=== PATIENT | female | born 1940 | race Two or more races ===

== ENCOUNTER 2022-01-22 19:23 | Emergency (ER) | payer OTHER ==
[~2022-01-22] VITALS: Ht 147.3 cm; Wt 63.5 kg
--- NOTE | 2022-01-22 21:18 | NUR ---
TO ER BED 7. BIBS C/O R WRIST PAIN AND R RIB PAIN S/P GLF OCCURRED AT 1400. PT STATES "WAS SLEEPING AND STARTLED BY PHONE RINGING". PT DENIES HEAD TRAUMA. R WRIST SWELLING AND DEFORMITY NOTED. CONNECTED TO MONITOR. AWAITING MD GNUTER
--- NOTE | 2022-01-22 21:22 | NUR ---
XRAY AT BEDSIDE
--- NOTE | 2022-01-22 21:32 | NUR ---
PT STATING SHE HAS HEADACHE, "STATES I JUST REMEMBERED I HIT MY HEAD ON THE DOOR WHEN I FELL DOWN". MADE AWARE.
--- NOTE | 2022-01-22 22:45 | NUR ---
EMT AT PT'S BEDSIDE; R HAND SPLINT BEING APPLIED ON
[2022-01-22] MEDS ORDERED: IBUP-1955 PO (22:52)
[2022-01-22] MEDS ORDERED: KETOROLAC TROMETHAMINE 15 MG/ML VIAL ONE (22:58)
[2022-01-22] MEDS ORDERED: KETOROLAC TROMETHAMINE INJ 30 MG/ML VIAL IM ONE (23:00)
[2022-01-22 23:04] VITALS: BP 169/84
--- NOTE | 2022-01-22 23:04 | NUR ---
Patient discharged to home in stable condition. Written and verbal after care instructions given. Patient verbalizes understanding of instruction.
== END 2022-01-22 23:05 | disposition home or self-care (01) ==
LOC: ER 19:45
DX: S52.501A Unspecified fracture of the lower end of right radius, initial encounter for closed fracture (principal); S09.90XA Unspecified injury of head, initial encounter; S20.212A Contusion of left front wall of thorax, initial encounter; I10 Essential (primary) hypertension; E11.9 Type 2 diabetes mellitus without complications; W01.0XXA Fall on same level from slipping, tripping and stumbling without subsequent striking against object, initial encounter; Y93.89 Activity, other specified; Y92.89 Other specified places as the place of occurrence of the external cause; Y99.8 Other external cause status
CPT/HCPCS: 29125; 70450; 71045; 73110; 96372; 99284; J1885